=== PATIENT | female | born 1940 | race Caucasian/White ===

== ENCOUNTER 2020-03-06 07:15 | Emergency (ER) | payer MEDICARE, OTHER ==
--- NOTE | 2020-03-06 07:16 | ED ---
Palpitations / Dysrhythmia - HPI Summary HPI Summary: 79 y/o F brought in by EMS to [facility] c/o palpitations, racing heart, dizziness/ light headedness this morning. HR in the 80s per EMS. Patient placed on campus monitor which showed HR fluctuating between 60 and 135. Weaned off naldol this week per cardiology. Symptoms aggravated by walking. Symptoms alleviated by nothing. She is followed by Dr. Live. She has an appointment with him 03/09. Had 30 day Holter monitor done for dizziness. Hx hypertension. No other cardiac hx. Patient is otherwise healthy. Medications reviewed. Allergies noted. - History of Current Complaint Hx Obtained From: Patient, EMS Onset/Duration: Still Present Character: Fast Aggravating: Exertion Alleviating: Nothing Associated Signs & Symptoms: Lightheadedness, Dizzy - Allergy/Home Medications Allergies/Adverse Reactions: Allergies Allergy/AdvReac Type Severity Reaction Status Date / Time raloxifene [From Evista] Allergy Unknown Verified 02/14/19 08:58 Reaction Details NSAIDS (Non-Steroidal AdvReac GI Upset Verified 03/06/20 07:53 Anti-Inflamma Home Medications: Home Medications Levothyroxine TAB* [Synthroid 25 MCG TAB*] 25 mcg PO 0800 02/08/19 [History Confirmed 03/06/20] Estradiol PATCH 0.075/DAY* [Climara PATCH 0.075 MG/DAY*] 1 patch TOPICAL Q14D [History Confirmed 03/06/20] Nadolol (NF) 20 mg PO DAILY 05/22/19 [History Confirmed 03/06/20] Zolpidem TAB* [Ambien*] 5 mg PO BEDTIME PRN 05/22/19 [History Confirmed 03/06/20 ] Progesterone, Micronized [Progesterone] 100 mg PO BID 03/06/20 [History Confirmed 03/06/20] PMH/Surg Hx/FS Hx/Imm Hx Endocrine/Hematology History: Reports: Hx Thyroid Disease, Other Endocrine/ Hematological Disorders - enlarged thyroid Denies: Hx Diabetes, Hx Anemia Cardiovascular History: Reports: Hx Hypertension, Other Cardiovascular Problems/ Disorders - reported "enlarged ascending aorta" GI History: Reports: Hx Diverticulosis, Other GI Disorders - acid reflux Musculoskeletal History: Reports: Hx Arthritis, Hx Back Problems Sensory History: Reports: Hx Contacts or Glasses Opthamlomology History: Reports: Hx Contacts or Glasses Neurological History: Reports: Hx Migraine - Surgical History Surgery Procedure, Year, and Place: Hysterectomy 1977. appendectomy as a teenager Hx Anesthesia Reactions: No - Family History Known Family History: Positive: Other - breast cancer - Social History Alcohol Use: Daily Alcohol Amount: 1 drink at dinner Hx Substance Use: No Substance Use Type: Reports: None Hx Tobacco Use: No Smoking Status (MU): Never Smoked Tobacco Review of Systems Positive: Palpitations, Other - racing heart Neurological/Mental Status: Other - dizziness, light headedness All Other Systems Reviewed And Are Negative: Yes Physical Exam - Summary Physical Exam Summary: Constitutional: Well-developed, Well-nourished, Alert. (-) Distressed Skin: Warm, Dry HENT: Normocephalic; Atraumatic Eyes: Conjunctiva normal Neck: Musculoskeletal ROM normal neck. (-) JVD, (-) Stridor, (-) Nuchal rigidity Cardio: Rhythm regular, rate normal, Heart sounds normal; Intact distal pulses; Radial pulses are 2+ and symmetric. (-) Murmur Pulmonary/Chest wall: Effort normal. (-) Respiratory distress, (-) Wheezes, (-) Rales Abd: Soft, (-) tenderness, (-) Distension, (-) Guarding, (-) Rebound Musculoskeletal: (-) Edema Lymph: (-) Cervical adenopathy Neuro: Alert, Oriented x3, CN 2-12 grossly intact. No dysmetria. Strength 5/5 UE LE. Ambulates steadily but slowly Psych: Mood and affect Normal Triage Information Reviewed: Yes Vital Signs Reviewed: Yes - Desirae Coma Scale Best Eye Response: 4 - Spontaneous Best Motor Response: 6 - Obeys Commands Best Verbal Response: 5 - Oriented Coma Scale Total: 15 Procedures - Sedation Patient Received Moderate/Deep Sedation with Procedure: No Diagnostics - Laboratory Result Diagrams: 03/06/20 08:08 03/06/20 08:08 Lab Statement: Any lab studies that have been ordered have been reviewed, and results considered in the medical decision making process. - CT BRAIN CT Interpretation Completed By: Radiologist - IMPRESSION: Normal CT of the brain. ED physician has reviewed this imaging report. - EKG 0751 Cardiac Rate: Bradycardia - 50 BPM EKG Rhythm: Sinus Bradycardia Summary of EKG Findings: An EKG at 0751 reveals normal sinus bradycardia 50 BPM. Prolonged QT. T wave inversions in 3. No STEMI. No acute changes. ED physician has reviewed and interpreted this EKG. Re-Evaluation - Re-Evaluation First Eval Re-Evaluation Time: 08:35 Change: Improved - ambulated w/o difficulty. HR in 70's Second Eval Re-Evaluation Time: 10:15 Change: Unchanged - ambulated patient. states she feels off balance slightly. Denies vertigo (does have hx). Normal neuro exam. Will check CT head to r/o cerbellar cause Course/Dx - Course Course Of Treatment: 79 y/o F w hypothyroidism hx tachycardia/bradycardia p/w lightheadedness and palpitations. HR 50's, EKG sinus. Labs w normal electrolytes, stable Hb. Dizziness ddx: Differential diagnosis includes: Cardiac causes - EKG sinus, d/w cardiology who recommends follow up on Monday in office (pacemaker vs ablation). Electrolyte disturbances - normal CMP nad BG. Anemia - no anemia. Posterior stroke/tia - will get CT head, however w normal neuro exam, no vertigo, suspect likely not [employer] related - Diagnoses Provider Diagnoses: Light headedness - Physician Notifications Discussed Care Of Patient With: Jaziel Tobar - will come patient in ED. 1007 Dr. Tobra states patient can go home and follow up with Dr. Live on Monday. Time Discussed With Above Provider: 09:46 Discharge ED - Sign-Out/Discharge Documenting (check all that apply): Patient Departure - Discharge Plan Condition: Stable Disposition: HOME Patient Education Materials: Near Syncope (ED) Referrals: Jeffrey Velarde MD [Primary Care Provider] - Jez Live MD [Medical Doctor] - 03/09/20 Additional Instructions: You were seen in the emergency department for lightheadedness. We discussed her case cardiology who recommends you follow-up on Monday in their office. Please not drive a car until you're evaluated by cardiology. Please follow up with your primary care doctor in next 2-3 days and return to emergency department for chest pain, passing out, shortness of breath, worsening or concerning symptoms. It was a pleasure taking care of you today. - Billing Disposition and Condition Condition: STABLE Disposition: Home - Attestation Statements Document Initiated by Scribe: Yes Documenting Scribe: Vida Travis Provider For Whom Scribe is Documenting (Include Credential): Kiara Koehler MD Scribe Attestation: I, Vida Travis, scribed for Kiara Koehler MD on 03/06/20 at 1104. Scribe Documentation Reviewed: Yes Provider Attestation: The documentation as recorded by the scribeVida accurately reflects the service I personally performed and the decisions made by me, Kiara Koehler MD Status of Scribe Document: Viewed
--- OUTSIDE RECORDS SUMMARY | 2020-03-06 07:29 | XMS REPORT | Continuity of Care Document ---
:1940 External Reference #:[id number] Author Name Traveling ECHO 1 (transmitted by agent of provider Risa Gee) Address [address] [place] [address] Care Team Providers Name Role Phone Jeffrey Velarde MD - Family Medicine Care Team Information Instructor Decorating Problems Active Problems Provider Date Mitral valve disorder Jez Live M.D., [facility], [place] Onset: 04/16/2014 Thoracic aortic ectasia Jez Live M.D., [facility], [facility] Onset: 09/26/2018 Aneurysm of thoracic aorta Jez Live M.D., [facility]: 2016 Social History Type Date Description Comments Sex Unknown ETOH Use Denies alcohol use Tobacco Use Start: Unknown Patient has never smoked Smoking Status Reviewed: 06/03/19 Patient has never smoked Exercise Type/Frequency Exercises regularly Allergies, Adverse Reactions, Alerts Active Allergies Reaction Severity Comments Date Aspirin stomach pain 04/28/2015 Ibuprofen heart burn 04/28/2015 Evista pain in calfs 04/28/2015 NSAIDs stomach pain 06/03/2019 Inactive Allergies NKDA 04/16/2014 Medications Active Medications SIG Qnty Indications Ordering Provider Date Finacea apply to cheeks Unknown 15% Gel daily in in the morning for rosacea Nadolol 1/2 tab by mouth 90tabs Unknown 20mg Tablets every day Zolpidem Tartrate 1 tab at bedtime 20tabs Unknown 5mg as needed for Tablets sleep Progesterone 1 by mouth bid 90caps Unknown Micronized 100mg Capsules Levothyroxine Sodium 1 and 1/2 tabs 90tabs Unknown twice a week 25mcg Tablets Estradiol Patch 2x week Unknown .075mg Diclofenac Sodium applied 4 g hip Jeffrey Velarde MD 1% Gel twice daily as needed Multivitamin Adult 1 by mouth every Unknown day Tablets Calcium 600+D High 1 by mouth twice Unknown Potency a day [id number] Tablets Medications Administered in Office Medication SIG Qnty Indications Ordering Provider Date Technetium TC 99M Jez Live M.D., 07/17/2017 Tetrofosmin, Per Unit Dose FACC, FASNC Up To 40 Millicuries Injection Immunizations Description No Information Available Vital Signs Date Vital Result Comment 06/03/2019 2:50pm Height 65 inches 5'5" Weight 129.00 lb Heart Rate 66 /min BP Systolic Sitting 122 mmHg BP Diastolic Sitting 80 mmHg Respiratory Rate 16 /min Body Temperature 97.6 F BMI (Body Mass Index) 21.5 kg/m2 09/26/2018 11:13am Height 65 inches 5'5" Weight 136.00 lb w/shoes Heart Rate 64 /min BP Systolic Sitting 138 mmHg Lue reg cuff BP Diastolic Sitting 80 mmHg Lue reg cuff BP Systolic Standing 160 mmHg Lue reg cuff BP Diastolic Standing 92 mmHg Lue reg cuff BMI (Body Mass Index) 22.6 kg/m2 Ejection Fraction 55-60% Echo 09/19/18 Results Test Acquired Date Facility Test Result H/L Range Note Basic Metabolic 02/07/2020 [facility] Sodium 136 mmol/L Normal 135-[address] [place], [place] [id number] [phone] Potassium 4.1 mmol/L Normal 3.5-5.0 Chloride 101 mmol/L Normal 101-111 Co2 Carbon Dioxide 26 mmol/L Normal 22-32 Anion Gap 9 mmol/L Normal 2-11 Glucose 82 mg/dL Normal 70-100 Blood Urea Nitrogen 10 mg/dL Normal 6-24 Creatinine 0.54 mg/dL Normal 0.51-0.95 BUN/Creatinine Ratio 18.5 Normal 8-20 Calcium 9.6 mg/dL Normal 8.6-10.3 Egfr Non- 108.9 >60 Egfr 131.8 >60 1 CBC Auto 02/07/2020 [facility] White Blood 7.7 10^3/uL Normal 3.5-10.[address] [place] [address] [phone] Red Blood Count 4.21 10^6/uL Normal 3.70-4.87 Hemoglobin 14.1 g/dL Normal 12.0-16.0 Hematocrit 40 % Normal 35-47 Mean Corpuscular Volume 96 fL Normal 80-97 Mean Corpuscular Hemoglobin 33 pg High 27-31 Mean Corpuscular HGB Conc 35 g/dL Normal 31-36 Red Cell Distribution Width 13 % Normal 10-15 Platelet Count 227 10^3/uL Normal 150-450 Mean Platelet Volume 8.6 fL Normal 7.4-10.4 Abs Neutrophils 4.9 10^3/uL Normal 1.5-7.7 Abs Lymphocytes 2.1 10^3/uL Normal 1.0-4.8 Abs Monocytes 0.6 10^3/uL Normal 0-0.8 Abs Eosinophils 0.1 10^3/uL Normal 0-0.6 Abs Basophils 0.0 10^3/uL Normal 0-0.2 Abs Nucleated RBC 0.0 10^3/uL Granulocyte % 63.0 % Lymphocyte % 27.8 % Monocyte % 8.2 % Eosinophil % 0.7 % Basophil % 0.3 % Nucleated Red Blood Cells % 0.0 Laboratory 02/07/2020 [facility] TSH (Thyroid 3.39 Normal 0.34 -5.60 test finding [address] Stim Horm) mcIU/[place] [address] [phone] Magnesium 2.0 mg/dL Normal 1.9-2.7 1 Because ethnic data is not always readily available, this report includes an eGFR for both -Americans and non- Americans. The National Kidney Disease Education Program (NKDEP) does not endorse the use of the MDRD equation for patients that are not between the ages of 18 and 70, are , have extremes of body size, muscle mass, or nutritional status, or are non- or non-. According to the National Kidney Foundation, irrespective of diagnosis, the stage of the disease is based on the level of kidney function: Stage Description GFR(mL/min/1.73 m(2)) 1 Kidney damage with normal or decreased GFR 90 2 Kidney damage with mild decrease in GFR 60-89 3 Moderate decrease in GFR 30-59 4 Severe decrease in GFR 15-29 5 Kidney failure <15 (or dialysis) Procedures Date Code Description Status 02/07/2020 00988 ECHO Transthoracic, Real-Time 2D With Doppler And Color Completed Flow 02/07/2020 44716 ECHO Transthoracic, Real-Time 2D With Doppler And Color Completed Flow Medical Devices Description No Information Available Encounters Description No Information Available Assessments Date Code Description Provider 02/07/2020 I77.810 Thoracic aortic ectasia Jez Live M.D., [place], [place] 02/07/2020 I77.810 Thoracic aortic ectasia Traveling ECHO 1 Plan of Treatment Future Appointment(s):03/18/2020 1:15 pm - Jez Live M.D., [place], [place] at [facility]06/03/2019 - Jaziel Reyes MD, [id number] 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
[2020-03-06 08:41] LABS: ABS Eosinophils 0.1 10^3/ul (0-0.6); ABS Monocytes 0.7 10^3/ul (0-0.8); ABS Neutrophils 4.3 10^3/ul (1.5-7.7); Hematocrit 41 % (35-47); Hemoglobin 14.1 g/dL (12.0-16.0); Mean Corpuscular HGB Conc 35 g/dL (31-36); Mean Corpuscular Hemoglobin 32 pg (27-31); Mean Corpuscular Volume 91 fL (80-97); Mean Platelet Volume 7.9 fL (7.4-10.4); Nucleated Red Blood Cells % 0.1; Platelet Count 203 10^3/uL (150-450); Red Blood Count 4.47 10^6 /uL (3.70-4.87); Red Cell Distribution Width 13 % (10-15)
[2020-03-06 08:50] LABS: Albumin 3.7 g/dL (3.2-5.2); Calcium 9.1 mg/dL (8.6-10.3); Magnesium 1.9 mg/dL (1.9-2.7); Potassium 3.9 mmol/L (3.5-5.0); Total Bilirubin 0.8 mg/dL (0.2-1.0)
[2020-03-06 08:56] LABS: Albumin/Globulin Ratio 1.3 (1-3); EGFR African American 116.7 (>60); EGFR Non-African American 96.4 (>60); Globulin 2.8 g/dL (2-4); Total Protein 6.5 g/dL (6.4-8.9)
[2020-03-06 09:11] LABS: TSH (Thyroid Stimulating Horm) 4.1 mcIU/mL (0.34-5.60)
[2020-03-06 11:21] VITALS: BP 184/94
== END 2020-03-06 11:19 | disposition home or self-care (01) ==
LOC: ED 07:15
DX: R42 Dizziness and giddiness (principal); E03.9 Hypothyroidism, unspecified; I10 Essential (primary) hypertension; Z90.710 Acquired absence of both cervix and uterus; Z90.89 Acquired absence of other organs; Z79.890 Hormone replacement therapy; Z79.899 Other long term (current) drug therapy; Z88.8 Allergy status to other drugs, medicaments and biological substances
CPT/HCPCS: 36415; 70450; 80053; 83735; 84443; 85025; 93005; 99283

== ENCOUNTER → 2020-03-23 | Day surgery (SDC) | payer MEDICARE, OTHER ==
[~2020-03-23] MED LIST: Diazepam 5 mg TAB (*) ONE; Flumazenil 0.5 mg/5 ml 0.1 MG/ML 5 ml VIAL ONE; Lidocaine 1% VIAL 10 MG/ML VIAL ONE; Midazolam 5 mg/5 ml VIAL 1 mg/ml 5 ml VIAL (5 mg) ONE; Naloxone 0.4 mg VIAL 0.4 mg/ml 1 ml VIAL ONE; ceFAZolin 1 GM/10 ML flush(*) SYRINGE for pocket flush (cardiology) FLUSH ONE; ceFAZolin* 2 GM* ONE DOSE (Duplex) IVPB; fentaNYL 100 mcg/2 ml 50 MCG/ML VIAL ONE
[2020-03-23 15:25] VITALS: BP 125/70
== END | disposition home or self-care (01) ==
LOC: CHICATH 08:34
PROVIDERS: ATTEND Specialist
DX: I49.5 Sick sinus syndrome (principal)

== ENCOUNTER 2024-03-22 09:52 | Observation (INO) ==
[~2024-03-22 09:52] MED LIST changes: -Diazepam 5 mg TAB (*) ONE; +Famotidine IV 10 MG/ML 2 ml VIAL (20 mg) IV ONE; -Flumazenil 0.5 mg/5 ml 0.1 MG/ML 5 ml VIAL ONE; -Lidocaine 1% VIAL 10 MG/ML VIAL ONE; -Midazolam 5 mg/5 ml VIAL 1 mg/ml 5 ml VIAL (5 mg) ONE; -Naloxone 0.4 mg VIAL 0.4 mg/ml 1 ml VIAL ONE; -ceFAZolin 1 GM/10 ML flush(*) SYRINGE for pocket flush (cardiology) FLUSH ONE; -ceFAZolin* 2 GM* ONE DOSE (Duplex) IVPB; -fentaNYL 100 mcg/2 ml 50 MCG/ML VIAL ONE
[2024-03-22 10:37] LABS: Rapid COVID-19 Molecular Undetected (Undetected)
[2024-03-22] MEDS ORDERED: ceFAZolin 2 GM PREMIX 2 GM/50 ML BAG ONE (10:37)
[2024-03-22] MEDS ORDERED: Tranexamic Acid 1 GM/100ML BAG 2,000 MG/200 ML BAG IV ONE (10:38)
[2024-03-22] MEDS ORDERED: Famotidine IV 10 MG/ML 2 ml VIAL (20 mg) ONE (10:38)
[2024-03-22] MEDS ORDERED: Propofol 10 MG/ML 20 ML BTL ONE (10:46)
[2024-03-22] MEDS ORDERED: Rocuronium 50 mg VIAL 10 mg/ml 5 ml VIAL (50 mg) ONE (10:46)
[2024-03-22] MEDS ORDERED: Dexamethasone IV 4 MG/ML VIAL 1 ml VIAL ONE (10:46)
[2024-03-22] MEDS ORDERED: Ondansetron 4 mg VIAL 2 MG/ML 2 ml VIAL ONE (10:46)
[2024-03-22] MEDS ORDERED: Lidocaine 2% PF 5 ML VIAL ONE (10:46)
[2024-03-22] MEDS ORDERED: Sterile Water for Inj 10 ML ONE (10:46)
[2024-03-22] MEDS ORDERED: Midazolam 2 mg/2 ml VIAL 1 mg/ml 2 ml VIAL (2 mg) ONE (10:48)
[2024-03-22] MEDS ORDERED: fentaNYL 100 mcg/2 ml 50 MCG/ML VIAL ONE ×2 (10:49→15:11)
[2024-03-22] MEDS: Buffered Lidocaine 1% SYRIN 1 ml INTRADERM ONE (11:05)
[2024-03-22] MEDS: Famotidine IV 10 MG/ML 2 ml VIAL (20 mg) IV ONE (11:53)
[2024-03-22] MEDS: Lactated Ringers 1000 ml BAG 1,000 ML IV SCH ×2 (11:54→18:35)
[2024-03-22] MEDS ORDERED: ROPIVACAINE 5 MG/ML 30 ML BTL (0.5%) ONE (12:01)
[2024-03-22] MEDS ORDERED: Dexmedetomidine 200 mcg/2 ml 2 ml VIAL (200 mcg) ONE (12:04)
[2024-03-22] MEDS ORDERED: Naloxone 0.4 mg VIAL 0.4 mg/ml 1 ml VIAL IV PRN (12:30)
[2024-03-22] MEDS ORDERED: HYDROmorphone 1 MG/1 ML SYRINGE IV PRN (12:30)
[2024-03-22] MEDS ORDERED: HYDROmorphone 0.5 MG/0.5 ML SYRINGE ONE (12:45)
[2024-03-22] MEDS ORDERED: Ondansetron ODT 4 mg TAB 4 MG TAB PO PRN (14:54)
[2024-03-22] MEDS ORDERED: Morphine 2 MG/ML SYRINGE IV PRN (14:54)
[2024-03-22] MEDS ORDERED: Lactulose 30 ml UDC PO PRN (14:54)
[2024-03-22] MEDS ORDERED: Magnesium Hydroxide LIQ 30 ML UDC PO PRN (14:54)
[2024-03-22] MEDS: fentaNYL 100 mcg/2 ml 50 MCG/ML VIAL IV PRN (15:16)
[2024-03-22] MEDS: Ondansetron 4 mg VIAL 2 MG/ML 2 ml VIAL IV PRN (17:45)
[2024-03-22] MEDS: ceFAZolin 1 GM ADVAN 1 GM in NS 0.9% 50 ML 50 ML IVPB SCH (21:07)
[2024-03-22] MEDS: Magnesium Hydroxide LIQ 30 ML UDC PO SCH (21:29)
[2024-03-23 06:12] LABS: Hematocrit 33.9 % (35-45); Hemoglobin 11.5 g/dL (11.5-14.3); Mean Platelet Volume 7.7 fL (7.5-11.2); Platelet Count 191 10^3/uL (150-450)
[2024-03-23 06:49] LABS: Creatinine, Serum 0.5 mg/dL (0.51-0.95)
[2024-03-23] MEDS: Cholecalciferol (VIT D3) 1,000 unit TAB PO SCH (08:35)
[2024-03-23] MEDS: Vitamin THERAPEUTIC TAB PO SCH (08:35)
[2024-03-23 09:59] VITALS: BP 98/57
== END 2024-03-23 13:45 | disposition home or self-care (01) ==
LOC: SSU 09:52 → OR 09:52
PROVIDERS: ADMIT Orthopaedic Surgery Adult Reconstructive Orthopaedic Surgery; ATTEND Orthopaedic Surgery Adult Reconstructive Orthopaedic Surgery